=== PATIENT | female | born 1985 | race Caucasian/White ===

== ENCOUNTER → 2019-09-22 | Outpatient (CLI) | payer OTHER ==
--- NOTE | 2019-09-22 16:53 | CT ---
EXAMINATION TYPE: CT sinus wo con DATE OF EXAM: 09/22/2019 COMPARISON: NONE HISTORY: Sinusitis, issue w/septum CT DLP: 459.10 mGycm. Automated Exposure Control for Dose Reduction was Utilized. TECHNIQUE: CT scan of the sinuses is performed without contrast, axial images are obtained, coronal r eformatted images are also reviewed. FINDINGS: There is very minimal leftward nasal septal deviation and a small 2 mm leftward nasal septa l spur. There is mild mucosal thickening in the inferior left frontal sinus and right frontal sinus w ith narrowing of the frontal recesses by mucosal thickening. Mild ethmoid mucosal thickening is also seen. There is complete opacification of the left sphenoid sinus. There is scant mucosal thickening i s circumferential of the maxillary sinuses. The visualized mastoid air cells and middle ear cavities are well aerated. Visualized portion of the calvarium is intact. The bilateral ostiomeatal complexes are narrowed by mucosal thickening. There is obscuration of the left superior nasal turbinate and por tions of the left middle nasal turbinate presumably by dense mucosal thickening. No contra bullosa or Ryan cells are seen. IMPRESSION: 1. Very mild leftward nasal septal deviation and a small 2 mm leftward nasal septal spur. 2. Narrowing of the bilateral ostia medial complexes secondary to mucosal thickening. 3. Overall mild pansinusitis although severe in the left frontal sinus with complete opacification. T here is also narrowing of the frontal recesses secondary to mucosal thickening. 4. Obscuration of the left superior and portions of the middle nasal turbinate presumably by dense mu cosal thickening.
== END | disposition home or self-care (01) ==
LOC: RADCTMAIN 16:20
PROVIDERS: ATTEND Otolaryngology
DX: J34.2 Deviated nasal septum (principal); J32.4 Chronic pansinusitis; J34.89 Other specified disorders of nose and nasal sinuses
CPT/HCPCS: 70486

== ENCOUNTER → 2020-03-05 | Outpatient (CLI) | payer OTHER ==
[2020-03-06 11:53] LABS: Gliadin AB IgA, Deaminated NEGATIVE (NEGATIVE); Gliadin AB IgA, Unit 3.4 U/mL; Gliadin AB IgG, Deaminated NEGATIVE (NEGATIVE)
== END | disposition home or self-care (01) ==
LOC: LABWHC1 13:47
PROVIDERS: ATTEND Internal Medicine Gastroenterology
DX: K52.9 Noninfective gastroenteritis and colitis, unspecified (principal)
CPT/HCPCS: 36415; 83516; 85652; 86140

== ENCOUNTER 2020-12-07 21:02 | Emergency (ER) | payer OTHER ==
[2020-12-07 21:23] VITALS: TEMP 99.4
[2020-12-07] MEDS ORDERED: KETOROLAC 15 MG/ML 1 ML VIAL IVP STA (21:35)
[2020-12-07] MEDS ORDERED: SODIUM CHLORIDE 0.9% 1,000 ML IV STA (21:35)
[2020-12-07] MEDS ORDERED: ONDANSETRON 4 MG/2 ML VIAL IVP STA (21:35)
[2020-12-07] MEDS ORDERED: PANTOPRAZOLE 40 MG/10 ML VIAL IVP STA (21:35)
--- NOTE | 2020-12-07 21:54 | ED ---
Abdominal Pain HPI - General Chief Complaint: Abdominal Pain Stated Complaint: abd pain Time Seen by Provider: 12/07/20 21:22 Source: patient, family Mode of arrival: ambulatory Limitations: no limitations - History of Present Illness Initial Comments: 35-year-old female presents to the emergency department with a chief complaint of abdominal pain. She reports vague abdominal pain over the last 3 days but today she was at the movie theater when she began developing a sudden onset right lower quadrant abdominal pain along with nausea and multiple episodes of nonbilious and nonbloody vomiting. She denies any urinary or vaginal symptoms. Denies any constipation or diarrhea. States she has history of diverticulitis but this does not feel anything like that. Reports the pain is exacerbated with any movement and it is sharp in nature. Not postprandial. Mostly constant pain. Denies any fevers or chills. Surgical history of cholecystectomy, hysterectomy, . - Related Data Home Medications Medication Instructions Recorded Confirmed Levothyroxine Sodium [Synthroid] 50 mcg PO DAILY 12/07/20 12/07/20 estradioL [estradioL (Once Weekly) 1 patch TRANSDERM SUWE 12/07/20 12/07/20 0.1mg Patch] Allergies Allergy/AdvReac Type Severity Reaction Status Date / Time famotidine [From Pepcid] Allergy Swelling Verified 12/07/20 21:57 Review of Systems ROS Statement: Those systems with pertinent positive or pertinent negative responses have been documented in the HPI. ROS Other: All systems not noted in ROS Statement are negative. Past Medical History Past Medical History: Thyroid Disorder Additional Past Medical History / Comment(s): ibs, diverticulitis, menopause History of Any Multi-Drug Resistant Organisms: None Reported Past Surgical History: Section, Cholecystectomy, Hysterectomy, Orthopedic Surgery Past Psychological History: No Psychological Hx Reported Smoking Status: Never smoker Past Alcohol Use History: None Reported Past Drug Use History: Marijuana General Exam Limitations: no limitations General appearance: alert, in no apparent distress, obese Head exam: Present: atraumatic, normocephalic, normal inspection Eye exam: Present: normal appearance, PERRL, EOMI Pupils: Present: normal accommodation ENT exam: Present: normal exam, normal oropharynx, mucous membranes moist, TM's normal bilaterally, normal external ear exam Neck exam: Present: normal inspection, full ROM. Absent: tenderness Respiratory exam: Present: normal lung sounds bilaterally. Absent: respiratory distress, wheezes, rales, rhonchi, stridor, chest wall tenderness, accessory muscle use Cardiovascular Exam: Present: regular rate, normal rhythm, normal heart sounds. Absent: systolic murmur, diastolic murmur GI/Abdominal exam: Present: soft, tenderness (Right lower quadrant tenderness. Positive McBurney point tenderness). Absent: distended, guarding, rebound, rigid Extremities exam: Present: normal inspection, full ROM, normal capillary refill. Absent: tenderness, pedal edema, joint swelling Back exam: Present: normal inspection, full ROM. Absent: tenderness, CVA tenderness (R), CVA tenderness (L), muscle spasm, paraspinal tenderness, vertebral tenderness Neurological exam: Present: alert, oriented X3 Psychiatric exam: Present: normal affect, normal mood Skin exam: Present: warm, dry, intact, normal color Course Vital Signs 12/07/20 12/07/20 21:17 22:05 Temperature 99.4 F Pulse Rate 89 70 Respiratory 22 22 Rate Blood Pressure 158/113 140/70 O2 Sat by Pulse 97 95 Oximetry Medical Decision Making - Medical Decision Making 35-year-old female presents to the emergency department with a chief complaint of abdominal pain. On physical examination, right lower quadrant tenderness. Patient was given IV fluids, Zofran and Toradol. CBC CMP UA unremarkable. She did have mild transaminitis. CT of abdomen and pelvis shows no acute findings. I reevaluated the patient, she did report a permanent symptoms. She felt comfortable going home and having an outpatient follow-up. I did offer T[employer]po, she declined. Return parameters were thoroughly discussed patient was understanding and agreeable. Case discussed with - Lab Data Result diagrams: 12/07/20 21:55 12/07/20 21:55 Lab Results 12/07/20 12/07/20 12/07/20 Range/Units 21:55 21:55 21:55 WBC 9.9 (3.8-10.6) k/uL RBC 4.78 (3.80-5.40) m/uL Hgb 14.0 (11.4-16.0) gm/dL Hct 40.5 (34.0-46.0) % MCV 84.8 (80.0-100.0) fL MCH 29.2 (25.0-35.0) pg MCHC 34.5 (31.0-37.0) g/dL RDW 12.8 (11.5-15.5) % Plt Count 308 (150-450) k/uL MPV 6.8 Neutrophils % 59 % Lymphocytes % 31 % Monocytes % 5 % Eosinophils % 4 % Basophils % 1 % Neutrophils # 5.8 (1.3-7.7) k/uL Lymphocytes # 3.0 (1.0-4.8) k/uL Monocytes # 0.5 (0-1.0) k/uL Eosinophils # 0.4 (0-0.7) k/uL Basophils # 0.1 (0-0.2) k/uL Sodium 140 (137-145) mmol/L Potassium 3.8 (3.5-5.1) mmol/L Chloride 107 (98-107) mmol/L Carbon Dioxide 25 (22-30) mmol/L Anion Gap 8 mmol/L BUN 12 (7-17) mg/dL Creatinine 0.73 (0.52-1.04) mg/dL Est GFR (CKD-EPI)AfAm >90 (>60 ml/min/1.73 sqM) Est GFR (CKD-EPI)NonAf >90 (>60 ml/min/1.73 sqM) Glucose 98 (74-99) mg/dL Calcium 9.4 (8.4-10.2) mg/dL Total Bilirubin 0.4 (0.2-1.3) mg/dL AST 43 H (14-36) U/L ALT 49 H (4-34) U/L Alkaline Phosphatase 65 (38-126) U/L Total Protein 7.7 (6.3-8.2) g/dL Albumin 4.6 (3.5-5.0) g/dL Amylase 61 (30-110) U/L Lipase 270 (23-300) U/L Urine Color Yellow Urine Appearance Clear (Clear) Urine pH 7.0 (5.0-8.0) Ur Specific [place] 1.028 (1.001-1.035) Urine Protein Trace H (Negative) Urine Glucose (UA) Negative (Negative) Urine Ketones Negative (Negative) Urine Blood Negative (Negative) Urine Nitrite Negative (Negative) Urine Bilirubin Negative (Negative) Urine Urobilinogen 2.0 (<2.0) mg/dL Ur Leukocyte Esterase Negative (Negative) Disposition Clinical Impression: Nausea & vomiting, Abdominal pain Disposition: ADMITTED IP TO THIS [facility] Condition: Stable Instructions (If sedation given, give patient instructions): Abdominal Pain (ED) Additional Instructions: Please return to the Emergency Department if symptoms worsen or any other concerns. Is patient prescribed a controlled substance at d/c from ED?: No Referrals: Adrian Fountain MD [Primary Care Provider] - 1-2 days Time of Disposition: 22:58
[2020-12-07 22:08] LABS: Basophils # (A) 0.1 k/uL (0-0.2); Basophils % (A) 1 %; Eosinophils # (A) 0.4 k/uL (0-0.7); Eosinophils % (A) 4 %; HCT 40.5 % (34.0-46.0); Lymphocytes % (A) 31 %; MCH 29.2 pg (25.0-35.0); MCHC 34.5 g/dL (31.0-37.0); MCV 84.8 fL (80.0-100.0); Mean Platelet Volume 6.8; Monocytes # (A) 0.5 k/uL (0-1.0); Monocytes % (A) 5 %; Neutrophils # (A) 5.8 k/uL (1.3-7.7); Neutrophils % (A) 59 %; Platelet Count 308 k/uL (150-450); RBC 4.78 m/uL (3.80-5.40); RDW 12.8 % (11.5-15.5); WBC 9.9 k/uL (3.8-10.6)
--- NOTE | 2020-12-07 22:13 | CT ---
EXAMINATION TYPE: CT abdomen pelvis w con DATE OF EXAM: 12/07/2020 COMPARISON: None HISTORY: RLQ pain CT DLP: 1979.9 mGycm Automated exposure control for dose reduction was used. CONTRAST: Performed with IV Contrast, patient injected with 100 mL of Isovue 300. Images obtained from the diaphragm to the floor the pelvis with IV contrast. Lung bases are clear. There is no pleural effusion. Heart size is normal. There is no pericardial eff usion. There is some fatty infiltration of the liver. Spleen pancreas stomach appear intact. The bile ducts are not dilated. There are clips from cholecystectomy. There is no adrenal mass. Kidneys show satisfactory contrast opacification. There is no hydronephrosi s. Ureters are not dilated. There is no retroperitoneal adenopathy. Bladder distends smoothly. There is surgical apparent clips at the rectum. There is no inguinal hernia. There is no free fluid in the pelvis. There appears to be a small appendix that is inferior. No sign of appendicitis. There is no mesenteric edema. There is no ascites or free air. There is no evidence of a bowel obstru ction. Delayed images show normal renal excretion. The lumbar vertebra have normal spacing and alignment. Th ere is no compression fracture. The bony pelvis is intact. IMPRESSION: Fatty replacement in the liver. No dilated ducts. No evidence of appendicitis.
[2020-12-07 22:22] LABS: ALT 49 U/L (4-34); AST 43 U/L (14-36); African American GFR (CKD) >90 (>60 ml/min/1.73 sqM); Albumin 4.6 g/dL (3.5-5.0); Alkaline Phosphatase 65 U/L (38-126); Amylase 61 U/L (30-110); Anion Gap 8 mmol/L; Blood Urea Nitrogen 12 mg/dL (7-17); Calcium 9.4 mg/dL (8.4-10.2); Carbon Dioxide 25 mmol/L (22-30); Chloride 107 mmol/L (98-107); Glucose 98 mg/dL (74-99); Lipase 270 U/L (23-300); Non-African American GFR(CKD) >90 (>60 ml/min/1.73 sqM); Potassium 3.8 mmol/L (3.5-5.1); Sodium 140 mmol/L (137-145); Total Bilirubin 0.4 mg/dL (0.2-1.3); Total Protein 7.7 g/dL (6.3-8.2)
[2020-12-07 22:52] LABS: Appearance,Urine Clear (Clear); Bilirubin,Urine Negative (Negative); Blood,Urine Negative (Negative); Color,Urine Yellow; Glucose,Urine (UA) Negative (Negative); Ketones,Urine Negative (Negative); Leukocyte Esterase,Urine Negative (Negative); Nitrite,Urine Negative (Negative); Protein,Urine Trace (Negative); Specific Gravity,Urine 1.028 (1.001-1.035)
[2020-12-08 00:49] VITALS: BP 156/105; PULSE 79; RESP 18
== END 2020-12-08 00:49 | disposition other institution (70) ==
LOC: EC 21:02
DX: R10.31 Right lower quadrant pain (principal); R11.2 Nausea with vomiting, unspecified; E07.9 Disorder of thyroid, unspecified; Z79.890 Hormone replacement therapy
CPT/HCPCS: 99284; 96374; 96375 ×2; 96361; 36415; 80053; 82150; 83690; 85025; 81003; 74177; J2405; J1885; C9113; Q9967

== ENCOUNTER → 2021-02-06 | Outpatient (CLI) | payer OTHER ==
[2021-02-06 16:05] LABS: INR 0.9 (<1.2); Partial Thromboplastin Time 23.5 sec (22.0-30.0); Prothrombin Time 10.2 sec (9.0-12.0)
[2021-02-06 23:25] LABS: HCT 40.6 % (37.2-46.3); HGB 13.3 g/dL (12.0-15.0); MCH 29.1 pg (27.0-32.0); MCHC 32.8 g/dL (32.0-37.0); MCV 88.8 fL (80.0-97.0); Mean Platelet Volume 10.2 fL (9.5-12.2); Platelet Count 326 X 10*3/uL (140-440); RBC 4.57 X 10*6/uL (4.10-5.20); RDW 12.8 % (11.5-14.5); WBC 7.98 X 10*3/uL (4.50-10.00)
[2021-02-07 03:41] LABS: Hemoglobin A1C 5.2 % (4.0-6.0)
[2021-02-07 06:37] LABS: % Iron Saturation 21.99 (12.00-45.00); African American GFR (CKD) 108.4 (60.0-200.0); Albumin 4.5 g/dL (3.80-4.90); Albumin/Globulin Ratio 1.61 (1.60-3.17); Anion Gap 8.2 mmol/L (4.00-12.00); BUN/Creat Ratio 13.75 Ratio (12.00-20.00); Calcium 9.2 mg/dL (8.7-10.3); Carbon Dioxide 26.8 mmol/L (21.6-31.8); Chol/HDL Ratio 4.55; Globulin 2.8 g/dL (1.6-3.3); Magnesium 1.9 mg/dL (1.5-2.4); Non-African American GFR(CKD) 93.5 (60.0-200.0); Phosphorus 3.3 mg/dL (2.4-5.1); Potassium 4.3 mmol/L (3.5-5.5); Total Bilirubin 0.4 mg/dL (0.3-1.2); Total Protein 7.3 g/dL (6.2-8.2)
[2021-02-07 09:07] LABS: Folate, Serum 11.3 ng/mL
[2021-02-07 12:13] LABS: Zinc, Serum 89 ug/dL (60-130)
[2021-02-08 06:23] LABS: Vitamin A 51 ug/dL (38-106)
[2021-02-08 13:13] LABS: Vit B1(Thiamine) 80 ug/L (38-122)
== END | disposition home or self-care (01) ==
LOC: LABWHC1 14:35
PROVIDERS: ATTEND Surgery Plastic and Reconstructive Surgery
DX: E66.01 Morbid (severe) obesity due to excess calories (principal); E89.1 Postprocedural hypoinsulinemia; D50.8 Other iron deficiency anemias; E44.0 Moderate protein-calorie malnutrition; E55.9 Vitamin D deficiency, unspecified; K74.1 Hepatic sclerosis; N19 Unspecified kidney failure; K50.90 Crohn's disease, unspecified, without complications; Z71.51 Drug abuse counseling and surveillance of drug abuser; Z98.84 Bariatric surgery status
CPT/HCPCS: 84255; 84134; 84425; 80061; 80053; 82607; 82728; 82525; 82746; 83540; 83550; 83735; 84100; 84443; 84590; 84630; 85027; 85610; 85730; 82306; 80307 ×2; 83970; 83036; 93005; 36415; G0482

== ENCOUNTER → 2021-03-27 | Outpatient (CLI) | payer OTHER ==
--- NOTE | 2021-03-27 16:40 | CONS ---
CONSULTATION DATE OF SERVICE: 03/27/2021 36-year-old lady has been evaluated in Sleep Center for significant excessive daytime sleepiness. HISTORY OF PRESENT ILLNESS SLEEP-WAKE EVALUATION: The patient has been diagnosed with narcolepsy in 2012 by results of home [place]. She never has been treated with any medications for that reason. SLEEP SCHEDULE: Her sleep schedule from 11 p.m. to 6 a.m. and on weekends from midnight until 8 a.m. FALLING ASLEEP: She does have problems with falling asleep. She has TV set in bedroom. DURING SLEEP: She usually sleeps on the side position. According to the patient, she snores very rarely. She wakes up from sleep 2 times with one episode of nocturia. DURING THE DAY/SLEEP WAKE EVALUATION: In the morning, she wakes up tired. Has difficulties to pay attention, falling asleep during the day, has problems with memory, concentration and anxiety. [place] Sleepiness Scale significantly increased to 12. The patient may take several naps during the day and she is seeing vivid dreams during the naps. Sometimes during the day, she has loss of muscle tone usually after episodes when she developed some kind of physical tiredness, possibly cataplexy. PAST MEDICAL HISTORY: Positive for hypothyroidism, headaches, fibromyalgia, episodes of hypertension in the office, arthritis, anemia, liver problems. PAST SURGICAL HISTORY: x2, hysterectomy, total hemorrhoidectomy, facial surgery. SOCIAL HISTORY: Positive for smoking many years ago. Alcohol consumption: None at the present time. MEDICATIONS: Levothyroxine. The patient does not remember the dose once a day, Estradiol 0.1 mg twice a week. FAMILY HISTORY: Positive for heart problems, cancer, diabetes. REVIEW OF SYSTEMS: Significant for excessive daytime sleepiness, awakenings from sleep. PHYSICAL EXAMINATION: GENERAL: lady without distress BP 112/76, HR 77, RR 12, height 5 feet and 5 inches, weight 226.0. Body mass index 37.6, temperature 97.2, oxygen saturation at room air 96%. Oropharynx low position of soft palate, Mallampati 3. NECK is 17 inches in circumference. Neck: Supple, no JVD. Thyroid is not palpable. LUNGS: Clear to percussion and to auscultation. Good air exchange. No wheezing or rhonchi. HEART: S1, S2 regular. No murmurs, gallops, or rubs. ABDOMEN: Obese. Soft and nontender. Bowel sounds are present. No organomegaly appreciated. EXTREMITIES: No clubbing or cyanosis. TITLE ABSTRACTOR: Awake, alert, and oriented X3. Cranial nerves 2 to 7 intact. There is no fasciculation or atrophy. IMPRESSION: 1. History of narcolepsy diagnosed in different institution in another state by test which was done at home. The patient has significant excessive daytime sleepiness, takes naps with vivid dreams, has possible episodes of cataplexy, possibly narcolepsy with cataplexy. 2. Some awakenings from sleep, low position of soft palate, Mallampati 3, wide neck, 17 inches in circumference, sleepiness, possible obstructive sleep apnea-hypopnea syndrome. 3. Obesity, body mass index 37.6. 4. Hypertension. 5. Hypothyroidism. 6. Status post total hysterectomy. 7. Status post 2 C-sections. 8. Status post nasal septoplasty surgery. 9. History of fibromyalgia. 10.Headaches. PLAN: 1. Polysomnography with following multiple sleep latency test for possible narcolepsy and also to check her breathing during sleep for possible obstructive sleep apnea- hypopnea syndrome, although patient denied any significant snoring in 2 and episodes of stopped breathing during sleep. 2. Losing weight. 3. Sleep hygiene with regular time in bed for 7-1/2 to 8 hours. 4. No driving if feeling sleepiness. 5. Following plan after reviewing results of sleep study. Thank you very much for referring this patient for consultation. Sincerely, Steffen Stuart MD, PhD, FAASM Diplomat of [employer] Sleep Medicine Board of [employer] Operator of [facility] [place] MMODL / IJN: [id number] /
== END ==
LOC: SLEEP 10:19
PROVIDERS: ATTEND Internal Medicine
DX: G47.419 Narcolepsy without cataplexy (principal); E66.9 Obesity, unspecified; Z68.37 Body mass index [BMI] 37.0-37.9, adult; I10 Essential (primary) hypertension; E03.9 Hypothyroidism, unspecified; Z98.890 Other specified postprocedural states; Z87.59 Personal history of other complications of pregnancy, childbirth and the puerperium; Z90.711 Acquired absence of uterus with remaining cervical stump; Z87.39 Personal history of other diseases of the musculoskeletal system and connective tissue; F17.200 Nicotine dependence, unspecified, uncomplicated; Z79.899 Other long term (current) drug therapy; Z88.8 Allergy status to other drugs, medicaments and biological substances
CPT/HCPCS: 99211

== ENCOUNTER → 2021-05-16 | Outpatient (CLI) | payer OTHER ==
--- NOTE | 2021-05-16 18:10 | SFUN ---
SLEEP CENTER FOLLOW UP NOTE DATE OF SERVICE: 05/16/2021 This 36-year-old lady has been followed in Sleep Center and came in to discuss results of sleep studies and following plan. I discussed results of sleep studies with the patient in detail. Diagnostic polysomnogram did not show significant abnormalities of respiration. Mild changes of respiration were seen in REM sleep. Multiple sleep latency test confirmed sleepiness. Mean sleep latency was 9.5 minutes, which is less than 10 minutes and does indicate sleepiness, but longer than for classical diagnosis of narcolepsy. Also no sleep-onset REM periods have been documented. Patient continues to feel significant sleepiness during the day. MEDICATIONS: Levothyroxine, Estradiol. PHYSICAL EXAMINATION: GENERAL: Pleasant patient in no distress. VITAL SIGNS: BP 129/83, HR 84, RR 15, oxygen saturation at room air 96%, temperature 97.5, height 5 feet 5 inches, weight 226, body mass index 37.7. HEENT: PERRLA, EOMI, evaluation of oropharynx showed tongue protrudes midline. Low position of soft palate; Mallampati III. NECK: Supple, no JVD. Thyroid is not palpable. LUNGS: Clear to percussion and to auscultation. Good air exchange. No wheezing or rhonchi. HEART: S1, S2 regular. No murmurs, gallops, or rubs. ABDOMEN: Slightly obese. EXTREMITIES: No clubbing or cyanosis. NAPPING MACHINE OPERATOR: Awake, alert, and oriented X3. Cranial nerves 2 to 7 intact. There is no fasciculation or atrophy. noted. No focal deficits observed. IMPRESSION: 1. No significant respiratory abnormalities have been documented during the sleep study. Mild abnormalities of respiration in REM sleep. 2. Multiple sleep latency test confirmed sleepiness. Mean sleep latency 9.5 minutes, but it is not sufficient for diagnosis of narcolepsy; could represent idiopathic hypersomnia. 3. Difficulties to concentrate, possibly attention deficit hyperactivity disorder. 4. Hypertension. 5. Obesity. Body mass index 37.6. 6. Hypothyroidism. 7. Status post total hysterectomy. 8. Status post two sections. 9. Status post nasal septoplasty surgery. 10.History of fibromyalgia. 11.Headaches. PLAN: 1. I will start the patient with smaller doses of Adderall, 5 mg in the morning and in the middle of the day to prevent symptoms of excessive daytime sleepiness, which could be a danger for driving and also for possible ADHD. 2. Sleep hygiene with regular time in bed for at least 7-1/2 to 8 hours. 3. Daytime naps permitted. 4. Precautions related to driving. No driving if feeling sleepiness. 5. Preferable position during sleep on the side because there were fewer abnormalities of respiration during the REM sleep. 6. Watching and losing weight. 7. Follow-up visit in 1-2 months. Thank you very much for allowing me to participate in the management of your patient. Sincerely, Steffen Stuart MD, PhD, FAASM Diplomat of [employer] Sleep Medicine Board of [employer] Therapeutic [employer] Services Worker of [facility] [place] MMODL / IJN: [id number] /
== END ==
LOC: SLEEP 14:38
PROVIDERS: ATTEND Internal Medicine
DX: G47.11 Idiopathic hypersomnia with long sleep time (principal); I10 Essential (primary) hypertension; E66.9 Obesity, unspecified; E03.9 Hypothyroidism, unspecified; R51.9 Headache, unspecified; Z68.37 Body mass index [BMI] 37.0-37.9, adult; F17.200 Nicotine dependence, unspecified, uncomplicated; Z90.710 Acquired absence of both cervix and uterus; Z87.39 Personal history of other diseases of the musculoskeletal system and connective tissue; Z98.890 Other specified postprocedural states; Z87.59 Personal history of other complications of pregnancy, childbirth and the puerperium; Z79.890 Hormone replacement therapy; Z88.8 Allergy status to other drugs, medicaments and biological substances

== ENCOUNTER → 2021-07-17 | Outpatient (CLI) | payer OTHER ==
--- NOTE | 2021-07-18 22:52 | SFUN ---
SLEEP CENTER FOLLOW UP NOTE DATE OF SERVICE: 07/17/2021 This 36-year-old lady has been followed in Sleep Center for treatment of her excessive daytime sleepiness and possible ADHD. The patient was started on treatment with Adderall 5 mg twice a day. With this regimen she feels better. No side effects of Adderall. Her [place] Sleepiness Scale today is 6, which is in normal range. MEDICATIONS: 1. Levothyroxine once a day. 2. Estradiol twice a week. PHYSICAL EXAMINATION: GENERAL: Pleasant patient in no distress. VITAL SIGNS: BP 121/83, HR 77, RR 16, height 5 feet 4-3/4 inches, weight 235.8 pounds, body mass index 39.4, temperature 97.3, oxygen saturation at room air 97%. HEENT: PERRLA, EOMI, evaluation of oropharynx showed tongue protrudes midline. NECK: Supple, no JVD. Thyroid is not palpable. LUNGS: Clear to percussion and to auscultation. Good air exchange. No wheezing or rhonchi. HEART: S1, S2 regular. No murmurs, gallops, or rubs. ABDOMEN: Soft and nontender. Bowel sounds are present. No organomegaly appreciated. EXTREMITIES: No clubbing or cyanosis. INSURANCE ACCOUNT ASSISTANT: Awake, alert, and oriented X3. Cranial nerves 2 to 7 intact. There is no fasciculation or atrophy. noted. No focal deficits observed. IMPRESSION: 1. Sleepiness, possibly idiopathic hypersomnia, improved on treatment with Adderall. 2. Possible attention deficit hyperactivity disorder. 3. Hypertension. 4. Obesity. BMI 37.6. 5. Hypothyroidism. 6. Status post total hysterectomy. 7. Status post two sections. 8. Status post nasal septoplasty surgery. 9. History of fibromyalgia. 10.History of headaches. PLAN: 1. Patient will continue treatment with Adderall to prevent symptoms of excessive daytime sleepiness. 2. Daytime naps permitted. 3. Sleep hygiene with regular time in bed for at least 7-1/2 to 8 hours. 4. Precautions related to driving. No driving if feeling sleepiness. 5. Watching and losing weight. 6. Follow-up visit in 6 months. Thank you very much for allowing me to participate in the management of your patient. Sincerely, Steffen Stuart MD, PhD, FAASM Diplomat of [employer] Sleep Medicine Board of [employer] Supervisor [employer] [facility] [place] MMHUI / TANMAYN: [id number] /
== END ==
LOC: SLEEP 11:40
PROVIDERS: ATTEND Internal Medicine
DX: G47.10 Hypersomnia, unspecified (principal); I10 Essential (primary) hypertension; E66.9 Obesity, unspecified; E03.9 Hypothyroidism, unspecified; F17.200 Nicotine dependence, unspecified, uncomplicated; Z68.37 Body mass index [BMI] 37.0-37.9, adult; Z87.59 Personal history of other complications of pregnancy, childbirth and the puerperium; Z86.69 Personal history of other diseases of the nervous system and sense organs; Z98.890 Other specified postprocedural states; Z90.711 Acquired absence of uterus with remaining cervical stump; Z79.890 Hormone replacement therapy; Z79.899 Other long term (current) drug therapy; Z88.1 Allergy status to other antibiotic agents

== ENCOUNTER → 2023-10-08 | Outpatient (CLI) | payer OTHER, BC ==
[2023-10-08 21:39] LABS: Basophils # (A) 0.04 X 10*3/uL (0.00-0.10); Basophils % (A) 0.5 %; Eosinophils # (A) 0.36 X 10*3/uL (0.04-0.35); Eosinophils % (A) 4.3 %; HCT 40.2 % (37.2-46.3); HGB 13.2 g/dL (12.0-15.0); Lymphocytes # (A) 2.54 X 10*3/uL (0.90-5.00); MCH 28.8 pg (27.0-32.0); MCHC 32.8 g/dL (32.0-37.0); MCV 87.8 FL (80.0-97.0); Mean Platelet Volume 9.8 FL (9.5-12.2); Monocytes # (A) 0.47 X 10*3/uL (0.20-1.00); Monocytes % (A) 5.5 %; NRBC Per 100 WBC 0 X 10*3/uL (0.00-0.01); Neutrophils # (A) 5.03 X 10*3/uL (1.80-7.70); Neutrophils % (A) 59.3 %; Platelet Count 337 X 10*3/uL (140-440); RBC 4.58 X 10*6/uL (4.10-5.20); RDW 12.9 % (11.5-14.5); WBC 8.47 X 10*3/uL (4.50-10.00)
[2023-10-08 21:47] LABS: ALT 23 U/L (8-44); AST 25 U/L (13-35); Albumin 4.2 g/dL (3.8-4.9); Albumin/Globulin Ratio 1.62 Ratio (1.60-3.17); Alkaline Phosphatase 54 U/L (41-126); BUN/Creat Ratio 15.12 Ratio (12.00-20.00); Blood Urea Nitrogen 12.1 mg/dL (9.0-27.0); Calcium 9.3 mg/dL (8.7-10.3); Carbon Dioxide 28.4 mmol/L (21.6-31.8); Chloride 102 mmol/L (96-109); Globulin 2.6 g/dL (1.6-3.3); Glucose 191 mg/dL (70-110); Potassium 4.2 mmol/L (3.5-5.5); Sodium 141 mmol/L (135-145); Total Bilirubin 0.3 mg/dL (0.3-1.2); Total Protein 6.8 g/dL (6.2-8.2)
[2023-10-09 03:16] LABS: Cryptosporidium Antigen Negative (Negative)
[2023-10-09 05:33] LABS: Clam IgE <0.10 kU/L; Codfish IgE <0.10 kU/L; Egg White IgE <0.10 kU/L; Peanut IgE <0.10 kU/L; Scallop IgE <0.10 kU/L; Shrimp IgE <0.10 kU/L; Soybean IgE <0.10 kU/L; Walnut IgE (Food) <0.10 kU/L
[2023-10-09 13:30] LABS: Calprotectin, Stool 7.2 mcg/g (<50)
== END | disposition home or self-care (01) ==
LOC: LABWHC1 12:28
PROVIDERS: ATTEND Internal Medicine Gastroenterology
DX: K58.0 Irritable bowel syndrome with diarrhea (principal); R10.9 Unspecified abdominal pain
CPT/HCPCS: 36415; 80053; 82533; 82653; 82705; 82785; 83630; 83993; 85025; 86003; 87045; 87046; 87324; 87328; 87329

== ENCOUNTER 2023-10-29 09:19 | Day surgery (SDC) | payer BC, OTHER ==
[2023-10-29] MEDS: LACTATED RINGERS 1,000 ML IV SCH (09:50)
[2023-10-29] MEDS ORDERED: LIDOCAINE 1% INJ 10MG/ML (20 ML MDV) ONE (09:54)
[2023-10-29] MEDS ORDERED: PROPOFOL 10 MG/ML 20 ML VIAL IV ONE (09:54)
--- NOTE | 2023-10-29 10:05 | P.PCN ---
Date of Procedure: 10/29/23 Procedure(s) Performed: BRIEF HISTORY: Patient is a 38-year-old pleasant white female scheduled for an upper endoscopy as a part of evaluation of heartburn, dyspeptic symptoms, excessive belching and burping for the last few weeks duration. PROCEDURE PERFORMED: Esophagogastroduodenoscopy With biopsy. PREOPERATIVE DIAGNOSIS: Chronic heartburn/dyspepsia. IV sedation per anesthesia. PROCEDURE: After informed consent was obtained, the patient was brought into the endoscopy unit. IV sedation was administered by Anesthesia under continuous monitoring. Initially the Olympus GIF-140 video endoscope was inserted into the mouth. Esophagus intubated without any difficulty. It was gradually advanced into the stomach and duodenum and carefully examined. The bulb and the second part of the duodenum appeared normal. The scope at this time was withdrawn to the stomach, adequately insufflated with air, and upon careful examination, mucosa of the antrum,had mild gastritis and biopsies were done from this area. Mucosa of the body, cardia and the fundus appeared normal. The scope was then withdrawn into the esophagus.Small hiatal hernia noted. The GE junction was located at 39 cm from the incisors. The esophagus appeared normal. There were no erosions or ulcerations seen. Biopsies were done from the distal esophagus and the patient tolerated the procedure well. IMPRESSION: 1.Mild antral gastritis 2.Small hiatal hernia RECOMMENDATIONS: The findings of this examination were discussed with the patient As well as a family. She was advised to follow up with the biopsy results. In the meantime will give her a trial of Prilosec 20 mg daily and was briefly educated about antireflux measures.
[2023-10-29 10:12] VITALS: TEMP 98.1
[2023-10-29 10:16] LABS: Glucose,Whole Blood 106 mg/dL (70-110)
[2023-10-29 10:59] VITALS: BP 110/74; PULSE 73; RESP 18
== END 2023-10-29 10:53 | disposition home or self-care (01) ==
LOC: ORWHC2ENDO 09:19
PROVIDERS: ATTEND Internal Medicine Gastroenterology
DX: K29.50 Unspecified chronic gastritis without bleeding (principal); K44.9 Diaphragmatic hernia without obstruction or gangrene; K21.00 Gastro-esophageal reflux disease with esophagitis, without bleeding; Z88.9 Allergy status to unspecified drugs, medicaments and biological substances; E07.9 Disorder of thyroid, unspecified; Z79.890 Hormone replacement therapy; Z79.899 Other long term (current) drug therapy
CPT/HCPCS: 88305; 43239; J2001; J2704